=== PATIENT | female | born 1975 | race Asian ===

== ENCOUNTER 2017-03-28 10:33 | Outpatient (CLI) | payer BC | END 2017-03-28 12:05 | disposition home or self-care (01) | LOC: MAMMO 10:33 | DX: Z12.31 Encounter for screening mammogram for malignant neoplasm of breast (principal) ==

== ENCOUNTER 2018-01-20 11:22 | Emergency (ER) | payer BC ==
[~2018-01-20] VITALS: Ht 170.2 cm; Wt 97.1 kg
[2018-01-20 13:15] LABS: PLATELET COUNT 315 K/uL (152-353)
[2018-01-20 13:26] LABS: POTASSIUM 3.6 mmol/L (3.6-5.2)
[2018-01-20 16:14] VITALS: BP 151/98; TEMP 98.1
== END 2018-01-20 16:15 | disposition home or self-care (01) ==
LOC: ED 11:22
PROVIDERS: Family Medicine
DX: A08.4 Viral intestinal infection, unspecified (principal); E86.0 Dehydration
CPT/HCPCS: 36415; 80053; 85027; 96365; 96374; 96375; 99284; J1885; J2405

== ENCOUNTER 2018-05-25 00:11 | Emergency (ER) | payer BC ==
[~2018-05-25] VITALS: Ht 170.2 cm; Wt 97.1 kg
[2018-05-25 00:15] VITALS: BP 135/107; TEMP 98.2
== END 2018-05-25 01:00 | disposition home or self-care (01) ==
LOC: ED 00:11
DX: M25.512 Pain in left shoulder (principal); Z98.890 Other specified postprocedural states
CPT/HCPCS: 96372; 99282; J1885

== ENCOUNTER 2018-07-31 13:12 | Outpatient (CLI) | payer BC | END 2018-07-31 23:46 | disposition home or self-care (01) | LOC: MAMMO 13:12 | DX: Z12.31 Encounter for screening mammogram for malignant neoplasm of breast (principal) ==

== ENCOUNTER 2018-09-22 21:18 | Emergency (ER) | payer BC ==
[~2018-09-22] VITALS: Ht 170.2 cm; Wt 98.9 kg
[2018-09-22 23:24] LABS: PLATELET COUNT 327 K/uL (152-353)
[2018-09-23 01:52] VITALS: BP 132/77; TEMP 98
== END 2018-09-23 01:52 | disposition home or self-care (01) ==
LOC: ED 21:18
PROVIDERS: Family Medicine
DX: E11.65 Type 2 diabetes mellitus with hyperglycemia (principal); Z79.4 Long term (current) use of insulin
CPT/HCPCS: 36415; 80053; 81000; 82962; 85027; 96360; 96365; 96372; 96375; 99283; 99284; J1815

== ENCOUNTER 2018-11-12 14:50 | Outpatient (CLI) | payer BC | END 2018-11-12 23:47 | disposition home or self-care (01) | LOC: RAD 14:50 | DX: M25.552 Pain in left hip (principal) ==

== ENCOUNTER 2019-02-13 14:15 | Emergency (ER) | payer BC ==
[~2019-02-13] VITALS: Ht 170.2 cm; Wt 98.9 kg
[2019-02-13] MEDS ORDERED: COUMADIN6 MG PO (14:40)
[2019-02-13] MEDS ORDERED: WARF7.5T5 PO (14:42)
[2019-02-13 15:40] LABS: POTASSIUM 3.5 mmol/L (3.6-5.2); SODIUM 142 mmol/L (136-145)
[2019-02-13 15:46] LABS: PLATELET COUNT 350 K/uL (152-353)
[2019-02-13 19:35] VITALS: BP 138/77; TEMP 98.3
== END 2019-02-13 19:35 | disposition home or self-care (01) ==
LOC: ED 14:15
PROVIDERS: Emergency Medicine
DX: K52.9 Noninfective gastroenteritis and colitis, unspecified (principal)
CPT/HCPCS: 80053; 81000; 82150; 83690; 83735; 84484; 85027; 96360; 96375; 99284; J2270; J2405

== ENCOUNTER 2019-04-08 14:01 | Emergency (ER) | payer BC ==
[~2019-04-08] VITALS: Ht 170.2 cm; Wt 98.9 kg
[~2019-04-08 14:01] MED LIST: COUMADIN6 MG PO; WARF7.5T5 PO
[2019-04-08 14:08] VITALS: TEMP 97.9
[2019-04-08] MEDS ORDERED: TOPAMAX50 MG PO (16:51)
[2019-04-08] MEDS ORDERED: ZESTRIL30 MG PO (16:51)
[2019-04-08] MEDS ORDERED: PAXIL20 MG PO (16:51)
[2019-04-08] MEDS ORDERED: AMLODIPINE BESYLATE PO (16:52)
[2019-04-08] MEDS ORDERED: METF500T PO (16:52)
[2019-04-08] MEDS ORDERED: LIPITOR40 MG PO (16:52)
[2019-04-08] MEDS ORDERED: COUMADIN6 MG PO (16:57)
[2019-04-08] MEDS ORDERED: JANTOVEN7.5 MG PO (16:58)
[2019-04-08 17:00] VITALS: BP 138/95
== END 2019-04-08 17:01 | disposition home or self-care (01) ==
LOC: ED 14:01
DX: B34.9 Viral infection, unspecified (principal); G43.809 Other migraine, not intractable, without status migrainosus; R11.0 Nausea
CPT/HCPCS: 87502; 96372; 99283; J3030

== ENCOUNTER 2020-04-12 13:32 | Outpatient (CLI) | payer BC ==
[~2020-04-12 13:32] MED LIST changes: +AMLODIPINE BESYLATE PO; +JANTOVEN7.5 MG PO; +LIPITOR40 MG PO; +METF500T PO; +PAXIL20 MG PO; +TOPAMAX50 MG PO; +ZESTRIL30 MG PO
== END 2020-04-12 22:01 | disposition home or self-care (01) ==
LOC: LABW 13:32
PROVIDERS: ATTEND Internal Medicine
DX: D68.59 Other primary thrombophilia (principal)
CPT/HCPCS: 36415; 85610

== ENCOUNTER 2020-04-13 13:31 | Outpatient (CLI) | payer BC | END 2020-04-13 23:00 | disposition home or self-care (01) | LOC: MAMMO 13:31 | PROVIDERS: ATTEND Obstetrics & Gynecology | DX: Z12.31 Encounter for screening mammogram for malignant neoplasm of breast (principal) ==

== ENCOUNTER 2020-05-11 14:48 | Outpatient (CLI) | payer BC | END 2020-05-11 21:37 | disposition home or self-care (01) | LOC: LABW 14:48 | PROVIDERS: ATTEND Internal Medicine | DX: D68.59 Other primary thrombophilia (principal); Z86.2 Personal history of diseases of the blood and blood-forming organs and certain disorders involving the immune mechanism | CPT/HCPCS: 36415; 85610 ==

== ENCOUNTER 2020-05-13 11:03 | Outpatient (CLI) | payer BC | END 2020-05-13 23:45 | disposition home or self-care (01) | LOC: LABW 11:03 | PROVIDERS: ATTEND Internal Medicine | DX: D68.59 Other primary thrombophilia (principal); Z86.2 Personal history of diseases of the blood and blood-forming organs and certain disorders involving the immune mechanism | CPT/HCPCS: 36415; 85610 ==

== ENCOUNTER 2020-05-17 15:48 | Outpatient (CLI) | payer BC | END 2020-05-17 19:32 | disposition home or self-care (01) | LOC: LABW 15:48 | PROVIDERS: ATTEND Internal Medicine | DX: Z79.01 Long term (current) use of anticoagulants (principal); D68.59 Other primary thrombophilia; Z86.2 Personal history of diseases of the blood and blood-forming organs and certain disorders involving the immune mechanism | CPT/HCPCS: 36415; 85610 ==

== ENCOUNTER 2020-05-24 11:11 | Outpatient (CLI) | payer BC | END 2020-05-24 22:43 | disposition home or self-care (01) | LOC: LABW 11:11 | PROVIDERS: ATTEND Internal Medicine | DX: D68.59 Other primary thrombophilia (principal); Z86.2 Personal history of diseases of the blood and blood-forming organs and certain disorders involving the immune mechanism | CPT/HCPCS: 36415; 85610 ==

== ENCOUNTER 2020-06-01 11:45 | Outpatient (CLI) | payer BC | END 2020-06-01 21:06 | disposition home or self-care (01) | LOC: LABW 11:45 | PROVIDERS: ATTEND Internal Medicine | DX: D68.59 Other primary thrombophilia (principal); Z86.2 Personal history of diseases of the blood and blood-forming organs and certain disorders involving the immune mechanism | CPT/HCPCS: 36415; 85610 ==

== ENCOUNTER 2020-06-07 14:32 | Outpatient (CLI) | payer BC | END 2020-06-07 19:29 | disposition home or self-care (01) | LOC: LABW 14:32 | PROVIDERS: ATTEND Internal Medicine | DX: D68.59 Other primary thrombophilia (principal); Z86.2 Personal history of diseases of the blood and blood-forming organs and certain disorders involving the immune mechanism | CPT/HCPCS: 36415; 85610 ==

== ENCOUNTER 2020-06-14 11:29 | Outpatient (CLI) | payer BC | END 2020-06-14 22:50 | disposition home or self-care (01) | LOC: LABW 11:29 | PROVIDERS: ATTEND Internal Medicine | DX: D68.59 Other primary thrombophilia (principal); Z86.2 Personal history of diseases of the blood and blood-forming organs and certain disorders involving the immune mechanism | CPT/HCPCS: 36415; 85610 ==

== ENCOUNTER → 2020-06-21 | Outpatient (CLI) | payer BC | LOC: INF 10:34 | PROVIDERS: ATTEND Internal Medicine | DX: Z23 Encounter for immunization (principal) | CPT/HCPCS: 96372 ==

== ENCOUNTER 2020-06-28 14:09 | Outpatient (CLI) | payer BC | END 2020-06-28 22:18 | disposition home or self-care (01) | LOC: INF 14:09 → LABW 14:09 → INF 22:18 | PROVIDERS: ATTEND Internal Medicine | DX: D68.59 Other primary thrombophilia (principal); Z86.2 Personal history of diseases of the blood and blood-forming organs and certain disorders involving the immune mechanism | CPT/HCPCS: 36415; 85610 ==

== ENCOUNTER 2020-06-29 18:21 | Outpatient (CLI) | payer BC | END 2020-06-29 20:51 | disposition home or self-care (01) | LOC: LABW 18:21 | PROVIDERS: ATTEND Internal Medicine | DX: D68.59 Other primary thrombophilia (principal); Z86.2 Personal history of diseases of the blood and blood-forming organs and certain disorders involving the immune mechanism | CPT/HCPCS: 36415; 85610 ==

== ENCOUNTER 2020-07-13 11:15 | Outpatient (CLI) | payer BC, OTHER | END 2020-07-13 21:15 | disposition home or self-care (01) | LOC: INF 11:15 | PROVIDERS: ATTEND Internal Medicine | DX: Z23 Encounter for immunization (principal) | CPT/HCPCS: 96372 ==

== ENCOUNTER 2020-08-09 11:16 | Emergency (ER) | payer BC ==
[~2020-08-09] VITALS: Ht 170.2 cm; Wt 78.5 kg
[2020-08-09 12:19] LABS: PLATELET COUNT 272 K/uL (152-353)
[2020-08-09 12:31] LABS: POTASSIUM 3.8 mmol/L (3.6-5.2)
[2020-08-09 14:25] VITALS: BP 112/64; TEMP 97.7
== END 2020-08-09 14:25 | disposition home or self-care (01) ==
LOC: ED 11:16
PROVIDERS: Emergency Medicine Emergency Medical Services
DX: D68.8 Other specified coagulation defects (principal); T45.515A Adverse effect of anticoagulants, initial encounter; Y92.89 Other specified places as the place of occurrence of the external cause
CPT/HCPCS: 80053; 85027; 85610; 96372; 99283; J3430

== ENCOUNTER 2020-09-14 15:21 | Emergency (ER) | payer BC ==
[~2020-09-14] VITALS: Ht 170.2 cm; Wt 78.5 kg
[2020-09-14 15:49] LABS: PLATELET COUNT 274 K/uL (152-353)
[2020-09-14 15:58] LABS: POTASSIUM 3.6 mmol/L (3.6-5.2)
[2020-09-14 16:17] LABS: PARTIAL THROMBOPLASTIN TIME 63.3 SECONDS (24.5-33.6)
[2020-09-14 17:30] VITALS: BP 121/84; TEMP 97.8
== END 2020-09-14 17:30 | disposition home or self-care (01) ==
LOC: ED 15:21
PROVIDERS: Family Medicine
DX: Z79.01 Long term (current) use of anticoagulants (principal); T45.515A Adverse effect of anticoagulants, initial encounter; Y92.89 Other specified places as the place of occurrence of the external cause
CPT/HCPCS: 80053; 85027; 85610; 85730; 96372; 99283; J3430

== ENCOUNTER 2020-10-01 11:33 | Outpatient (CLI) | payer BC | END 2020-10-01 23:59 | disposition home or self-care (01) | LOC: RAD 11:33 | PROVIDERS: ATTEND Nurse Practitioner Family | DX: S89.92XA Unspecified injury of left lower leg, initial encounter (principal) ==

== ENCOUNTER 2021-04-22 11:08 | Outpatient (CLI) | payer BC | END 2021-04-22 23:02 | disposition home or self-care (01) | LOC: MAMMO 11:08 | PROVIDERS: ATTEND Obstetrics & Gynecology | DX: Z12.31 Encounter for screening mammogram for malignant neoplasm of breast (principal) ==

== ENCOUNTER 2021-05-09 10:33 | Outpatient (CLI) | payer BC | END 2021-05-09 20:55 | disposition home or self-care (01) | LOC: MAMMO 10:33 | PROVIDERS: ATTEND Obstetrics & Gynecology | DX: R92.2 Inconclusive mammogram (principal) ==

== ENCOUNTER 2021-10-13 14:08 | Outpatient (CLI) | payer BC | END 2021-10-13 20:37 | disposition home or self-care (01) | LOC: US 14:08 | PROVIDERS: ATTEND Obstetrics & Gynecology | DX: R92.2 Inconclusive mammogram (principal) ==

== ENCOUNTER 2021-11-08 15:32 | Outpatient (CLI) | payer BC | END 2021-11-08 19:14 | disposition home or self-care (01) | LOC: LABW 15:32 | PROVIDERS: ATTEND Internal Medicine | DX: D68.59 Other primary thrombophilia (principal) | CPT/HCPCS: 36415; 85610 ==

== ENCOUNTER 2021-11-15 09:37 | Outpatient (CLI) | payer BC ==
[~2021-11-15] VITALS: Ht 170.2 cm; Wt 81.2 kg
[2021-11-15 09:37] VITALS: BP 102/75; TEMP 99.8
[2021-11-15 10:40] VITALS: BP 111/75; TEMP 99.3
[2021-11-15 10:55] VITALS: BP 122/82; TEMP 99.4
[2021-11-15 11:25] VITALS: BP 116/75; TEMP 99
== END 2021-11-15 19:03 | disposition home or self-care (01) ==
LOC: INF 09:37
PROVIDERS: ATTEND Family Medicine
DX: Z23 Encounter for immunization (principal); U07.1 COVID-19
CPT/HCPCS: 96374; Q0222

== ENCOUNTER 2022-04-22 18:00 | Emergency (ER) | payer BC ==
[~2022-04-22] VITALS: Ht 170.2 cm; Wt 82.6 kg
[2022-04-22 19:20] LABS: PLATELET COUNT 317 K/uL (152-353)
[2022-04-22 19:28] LABS: POTASSIUM 3.7 mmol/L (3.6-5.2)
[2022-04-22 19:39] LABS: PARTIAL THROMBOPLASTIN TIME 56.4 SECONDS (24.5-33.6)
[2022-04-22 21:33] VITALS: BP 139/84; TEMP 97.5
== END 2022-04-22 21:33 | disposition home or self-care (01) ==
LOC: ED 18:00
PROVIDERS: Emergency Medicine
DX: R79.1 Abnormal coagulation profile (principal); Z79.01 Long term (current) use of anticoagulants; V43.51XA Car driver injured in collision with sport utility vehicle in traffic accident, initial encounter; Y92.89 Other specified places as the place of occurrence of the external cause
CPT/HCPCS: 80048; 85027; 85610; 85730; 99283; Q9963

== ENCOUNTER 2022-08-08 09:14 | Outpatient (CLI) | payer BC | END 2022-08-08 18:57 | disposition home or self-care (01) | LOC: MAMMO 09:14 | PROVIDERS: ATTEND Obstetrics & Gynecology | DX: N63.20 Unspecified lump in the left breast, unspecified quadrant (principal) | CPT/HCPCS: G0279 ==

== ENCOUNTER 2022-08-27 14:56 | Emergency (ER) | payer BC ==
[~2022-08-27] VITALS: Ht 170.2 cm; Wt 82.6 kg
[2022-08-27 15:07] VITALS: BP 139/94; TEMP 98.1
== END 2022-08-27 16:24 | disposition home or self-care (01) ==
LOC: ED 14:56
PROC: 0HQMXZZ Repair Right Foot Skin, External Approach (ICD-10-PCS; principal; 2022-08-27)
DX: S91.114A Laceration without foreign body of right lesser toe(s) without damage to nail, initial encounter (principal); W45.8XXA Other foreign body or object entering through skin, initial encounter
CPT/HCPCS: G0168; 99283